=== PATIENT | female | born 1975 | race Caucasian/White ===

== ENCOUNTER → 2024-10-06 | Outpatient (CLI) | payer OTHER ==
[~2024-10-06] MED LIST: IOHEXOL-350 75 ML VIAL IV ONE
--- NOTE | 2024-10-06 14:40 | HMCIMG ---
CT angiogram chest CLINICAL INDICATION: MASS, LUMP ENLARGED LYMPHNODES COMPARISON: None. CT Dose Index (CTDI): 113.50 mGy Dose Length Product (DLP): 1408.10 total mGy PROTOCOL: Contrast: 100 cc of Isovue-370, injected IV, no complications Examination is done at 2.5 millimeter volumetric acquisition after contrast administration. Photography is done at 5 millimeter thick intervals for the thorax. FINDINGS: There is no evidence of pulmonary embolism. The airway is intact. The trachea and major bronchi are unremarkable. No pulmonary infiltrates or mass lesions are seen. No pleural effusions are identified. The exam of the sathish and mediastinum is unremarkable. No evidence of hilar enlargement is seen. The aorta shows no aneurysmal dilatation or significant atheromatous calcification. There is no thoracic aortic dissection. No significant brachiocephalic vascular abnormalities are seen. The heart is unremarkable. It is not enlarged. No significant coronary arterial calcifications are seen. There is no pericardial effusion. The rib cage appears unremarkable. The soft tissues of the chest wall are unremarkable. The dorsal spine shows no significant abnormalities. Limited evaluation of the upper abdomen demonstrates no gross abnormalities. IMPRESSION: No evidence of pulmonary embolism. This study was performed using dose reduction techniques to include automated exposure control and/or adjustment of the mA and/or kV according to patient size.
--- NOTE | 2024-10-06 14:45 | HMCIMG ---
Exam Type: CT NECK SOFT TISS W/CONTRAST Clinical Information: MASS, LUMP, ENLARGED LYMPHNODES Comparison: None CT Dose Index (CTDI): 7.98 mGy Dose Length Product (DLP): 178.1 total mGy-cm PROTOCOL: Photography is done at 3.8 millimeter thick intervals for the head. The study was performed in the axial plane, and reconstructed and photographed in sagittal and coronal planes as well. Findings: No lymphadenopathy is seen. No fluid collections or masses are identified. The vascular, muscular, as well as subcutaneous structures are preserved. No significant paranasal sinus pathology is seen. The base of the skull is unremarkable. There are no significant upper airway abnormalities. IMPRESSION: Normal CT of the neck. This study was performed using dose reduction techniques to include automated exposure control and/or adjustment of the mA and/or kV according to patient size.
== END | disposition home or self-care (01) ==
LOC: RAH 13:38
PROVIDERS: ATTEND Internal Medicine
DX: R22.1 Localized swelling, mass and lump, neck (principal)
CPT/HCPCS: 71260; 70491; Q9967 ×2